=== PATIENT | female | born 1970 | race Caucasian/White ===

== ENCOUNTER → 2024-01-27 | Outpatient (CLI) | payer OTHER ==
[~2024-01-27] MED LIST: ALBU90OI INH; ASPI81CH PO; ATOR40TA PO; Budeprion Xl300 MG PO; COLACE100 MG; Cetirizine HCl10 MG PO; DOCU100 PO; FLUTICASONE PRO16 GM; FUROSEMIDE20 MG PO; HYDACE10B PO; METO25ER PO; MONT10T PO; OMEP20ER PO; SOLI5; SOLIFENACIN SUC10 MG PO; VITAMIN D5000 UNIT PO
[2024-01-27 23:38] LABS: Bacterial Vaginosis PCR Negative (NEGATIVE); Candida Group, PCR NOT DETECTED (NOT DETECT); Candida glabrata-krusei, PCR NOT DETECTED (NOT DETECT)
== END ==
LOC: LAB 14:37 → LAB SHORT 14:37
PROVIDERS: General Practice
DX: N89.8 Other specified noninflammatory disorders of vagina (principal)
CPT/HCPCS: 87481; 87661; 87801

== ENCOUNTER 2024-06-07 20:35 | Observation (INO) | payer OTHER ==
[~2024-06-07] VITALS: Ht 165.1 cm; Wt 118.9 kg
[~2024-06-07 20:35] MED LIST changes: +BUPROPION XL150 M1 PO; -COLACE100 MG; +COLACE100 MG PO
[2024-06-07 20:59] LABS: BASOPHILS ABSOLUTE AUTO 0.04 K/mm3 (0.00-0.23); BASOPHILS PERCENT AUTO 1 % (0-2); EOSINOPHILS ABSOLUTE AUTO 0.18 K/mm3 (0.00-0.68); EOSINOPHILS PERCENT AUTO 3 % (0-6); Hematocrit 44.9 % (33.0-51.0); IMMATURE GRAN ABSOLUTE AUTO 0.01 K/mm3 (0.00-0.10); IMMATURE GRAN PERCENT AUTO 0 % (0-1); LYMPHOCYTES PERCENT AUTO 25 % (21-46); MONOCYTES ABSOLUTE AUTO 0.61 K/mm3 (0.16-1.47); MONOCYTES PERCENT AUTO 10 % (4-13); Mean Corpuscular HGB 29.3 pg (26.0-34.0); Mean Corpuscular HGB Conc 33.4 g/dL (31.5-36.5); Mean Corpuscular Volume 88 fL (80-100); Mean Platelet Volume 9.2 fL (9.1-12.4); NEUTROPHILS ABSOLUTE AUTO 3.93 K/mm3 (1.96-9.15); NEUTROPHILS PERCENT AUTO 62 % (41-73); Platelet Count 302 K/mm3 (150-400); RDW Coefficient Variation 13.3 % (11.7-14.2); RDW Standard Deviation 42.9 fL (35.1-46.3); Red Blood Cell Count 5.12 M/mm3 (3.80-5.20); White Blood Cell Count 6.37 K/mm3 (4.00-11.30)
[2024-06-07 21:14] LABS: International Normalized Ratio 0.91; Prothrombin Time Results 9.8 Sec (9.7-11.5)
[2024-06-07 21:23] LABS: Albumin, Blood 3.7 g/dL (3.4-5.0); Bilirubin, Total 0.7 mg/dL (0.1-1.0); Calcium, Blood 9.4 mg/dL (8.5-10.1); Creatinine, Blood 0.89 mg/dL (0.40-1.00); Globulin, Blood 3.6 g/dL (2.2-4.0); Total Protein, Blood 7.3 g/dL (6.4-8.2)
[2024-06-07] MEDS ORDERED: Clopidogrel Bisulfate 75 MG Tab PO ONE (22:30)
[2024-06-07] MEDS ORDERED: Aspirin 81 MG Chew PO ONE (22:30)
[2024-06-07] MEDS ORDERED: FLU VACC TS2024-25(6MOS UP)/PF 45 MCG/0.5 ML SYRINGE IM ONE (22:55)
[2024-06-07] MEDS ORDERED: Ondansetron HCl 2 MG / ML 2ML Vial IV PRN (22:55)
[2024-06-07] MEDS ORDERED: NS 1,000 ML IV SCH (22:55)
[2024-06-07] MEDS ORDERED: Atorvastatin 40 MG Tab PO SCH (23:00)
[2024-06-07] MEDS ORDERED: Enoxaparin 40 MG/0.4 ML SYR SC SCH (23:00)
[2024-06-08 04:08] LABS: Source, Urine Clean Catch
[2024-06-08 04:11] LABS: Bilirubin, Urine Neg (Neg); Blood, Urine Neg (Neg); Glucose Qualitative, Urine Neg (Neg); Ketones, Urine Neg (Neg); Leukocyte Esterase, Urine Neg (Neg); Nitrite, Urine Neg (Neg); Protein, Urine 1+ (Neg); Urobilinogen, Urine NORM (Normal)
[2024-06-08 04:21] LABS: Appearance, Urine Clear (Clear); Color, Urine Yellow (P-Yellow)
[2024-06-08 06:09] LABS: BASOPHILS ABSOLUTE AUTO 0.02 K/mm3 (0.00-0.23); BASOPHILS PERCENT AUTO 1 % (0-2); EOSINOPHILS ABSOLUTE AUTO 0.14 K/mm3 (0.00-0.68); EOSINOPHILS PERCENT AUTO 3 % (0-6); Hematocrit 40.4 % (33.0-51.0); Hemoglobin 13.3 g/dL (11.5-16.0); IMMATURE GRAN PERCENT AUTO 0 % (0-1); LYMPHOCYTES ABSOLUTE AUTO 1.16 K/mm3 (0.84-5.20); LYMPHOCYTES PERCENT AUTO 27 % (21-46); MONOCYTES ABSOLUTE AUTO 0.53 K/mm3 (0.16-1.47); MONOCYTES PERCENT AUTO 12 % (4-13); Mean Corpuscular HGB 28.9 pg (26.0-34.0); Mean Corpuscular HGB Conc 32.9 g/dL (31.5-36.5); Mean Corpuscular Volume 88 fL (80-100); Mean Platelet Volume 9.3 fL (9.1-12.4); NEUTROPHILS ABSOLUTE AUTO 2.45 K/mm3 (1.96-9.15); NEUTROPHILS PERCENT AUTO 57 % (41-73); Platelet Count 256 K/mm3 (150-400); RDW Coefficient Variation 13.7 % (11.7-14.2); RDW Standard Deviation 43.8 fL (35.1-46.3)
[2024-06-08 06:23] LABS: Albumin, Blood 3.2 g/dL (3.4-5.0); Bun/Creatinine Ratio 26.6 (12.0-20.0); Calcium, Blood 8.7 mg/dL (8.5-10.1); Creatinine, Blood 0.75 mg/dL (0.40-1.00); Globulin, Blood 3.1 g/dL (2.2-4.0); Potassium, Blood 4.4 mmol/L (3.5-5.5); Total Protein, Blood 6.3 g/dL (6.4-8.2)
[2024-06-08] MEDS ORDERED: Clopidogrel Bisulfate 75 MG Tab PO SCH (09:00)
[2024-06-08] MEDS ORDERED: Aspirin 81 MG Chew PO SCH (09:00)
[2024-06-08] MEDS ORDERED: Omeprazole 20 MG CapCR PO SCH (10:00)
[2024-06-08] MEDS ORDERED: Pantoprazole Sodium 20 MG Tab PO SCH (10:00)
[2024-06-08] MEDS ORDERED: Pantoprazole Sodium 40 MG Tab PO SCH (10:00)
--- NOTE | 2024-06-08 11:59 | NUR ---
PATIENT ARRIVED TO FLOOR AT 1154 VIA GURNEY AFTER RECEIVING REPORT FROM YASMIN CABALLERO. PATIENT DRESSED IN PAJAMAS. NS @ 75 IN RIGHT HAND. WANTING TO SIT UP AT THE ENDGE OF THE BED. NO CURRENT C/O PAIN OR DISCOMFORT. PERRLA. SLIGHT RIGHT-SIDED DEFICIT NOTED.
[2024-06-08 12:04] VITALS: BP 131/90
[2024-06-08] MEDS ORDERED: POTA10T PO (13:35)
[2024-06-08] MEDS ORDERED: EPIPEN0.3 MG/0.3 IM (15:30)
[2024-06-08 15:32] LABS: U Amphetamine Screen Not Detected; U Barbituate Screen Not Detected; U Benzodiazapine Screen Not Detected; U Buprenorphine Screen Not Detected; U Cannabinoids Screen Not Detected; U Cocaine Screen Not Detected; U Methadone Screen Not Detected; U Methamphetamine Screen Not Detected; U Opiates Screen Not Detected; U Oxycodone Screen Not Detected; U Phencyclidine Screen Not Detected
[2024-06-08 15:56] VITALS: BP 135/98
[2024-06-08] MEDS ORDERED: CLOP75 PO (17:05)
--- NOTE | 2024-06-08 17:19 | NUR ---
DISCHARGE SUMMARY: A&Ox4. PLEASANT AND COOPERATIVE WITH CARE. CALLS APPROPRIATELY AND IS ABLE TO ADVOCATE NEEDS EFFECTIVELY. AMBULATES INDEPENDENTLY. CONTINENT OF BOWEL AND BLADDER. TELE NSR. ECHO AND MRI COMPLETED. MEDICALLY STABLE FOR DISCHARGE. IV AND TELE REMOVED. MEDICATIONS FAXED TO [facility]. INSTRUCTED TO FOLLOW-UP WITH PCP NEXT WEEK. LEFT FLOOR WITH ALL BELONGINGS AND DISCHARGE PACKET, ESCORTED BY [facility]. TRANSPORTATION PROVIDED BY .
== END 2024-06-08 17:25 | disposition home or self-care (01) ==
LOC: ER 20:35 → ERHOLD 20:36 → MEDS 06-08 11:58
PROVIDERS: Emergency Medicine; Hospitalist; ADMIT Internal Medicine
DX: R53.1 Weakness (principal); R47.81 Slurred speech; I10 Essential (primary) hypertension; E78.00 Pure hypercholesterolemia, unspecified; G47.30 Sleep apnea, unspecified; K21.9 Gastro-esophageal reflux disease without esophagitis; E66.01 Morbid (severe) obesity due to excess calories; Z68.41 Body mass index [BMI] 40.0-44.9, adult; Z88.1 Allergy status to other antibiotic agents; Z79.82 Long term (current) use of aspirin; Z79.899 Other long term (current) drug therapy; Z86.73 Personal history of transient ischemic attack (TIA), and cerebral infarction without residual deficits
CPT/HCPCS: 70450; 70496; 70498; 70551; 71045; 80053; 83735; 83880; 84484; 85025; 85610; 85730; 93005; 93010; 93308; 96360; 96372; 99291-25; A9270; G0378; J1650; J2470; J7030; Q9967

== ENCOUNTER 2024-07-16 13:05 | Inpatient (IN) | payer OTHER ==
[~2024-07-16] VITALS: Ht 165.1 cm; Wt 120.1 kg
[~2024-07-16 13:05] MED LIST changes: +CLOP75 PO; +EPIPEN0.3 MG/0.3 IM; +POTA10T PO
[2024-07-16 13:47] LABS: BASOPHILS ABSOLUTE AUTO 0.04 K/mm3 (0.00-0.23); BASOPHILS PERCENT AUTO 1 % (0-2); EOSINOPHILS ABSOLUTE AUTO 0.13 K/mm3 (0.00-0.68); EOSINOPHILS PERCENT AUTO 2 % (0-6); Hematocrit 45.2 % (33.0-51.0); Hemoglobin 15.2 g/dL (11.5-16.0); IMMATURE GRAN ABSOLUTE AUTO 0.01 K/mm3 (0.00-0.10); IMMATURE GRAN PERCENT AUTO 0 % (0-1); LYMPHOCYTES ABSOLUTE AUTO 1.54 K/mm3 (0.84-5.20); LYMPHOCYTES PERCENT AUTO 24 % (21-46); MONOCYTES ABSOLUTE AUTO 0.62 K/mm3 (0.16-1.47); MONOCYTES PERCENT AUTO 10 % (4-13); Mean Corpuscular HGB 29.1 pg (26.0-34.0); Mean Corpuscular HGB Conc 33.6 g/dL (31.5-36.5); Mean Corpuscular Volume 86 fL (80-100); NEUTROPHILS ABSOLUTE AUTO 4.07 K/mm3 (1.96-9.15); NEUTROPHILS PERCENT AUTO 64 % (41-73); Platelet Count 337 K/mm3 (150-400); RDW Coefficient Variation 13.2 % (11.7-14.2); RDW Standard Deviation 41.2 fL (35.1-46.3); Red Blood Cell Count 5.23 M/mm3 (3.80-5.20); White Blood Cell Count 6.41 K/mm3 (4.00-11.30)
[2024-07-16] MEDS ORDERED: PANT40 PO (14:10)
[2024-07-16] MEDS ORDERED: MULVITA PO (14:10)
[2024-07-16 14:16] LABS: Albumin, Blood 3.9 g/dL (3.4-5.0); Albumin/Globulin Ratio 1.1 (0.8-1.8); Bilirubin, Total 1.1 mg/dL (0.1-1.0); Bun/Creatinine Ratio 22.4 (12.0-20.0); Calcium, Blood 9.5 mg/dL (8.5-10.1); Creatinine, Blood 0.85 mg/dL (0.40-1.00); Globulin, Blood 3.4 g/dL (2.2-4.0); Potassium, Blood 3.7 mmol/L (3.5-5.5); Total Protein, Blood 7.3 g/dL (6.4-8.2)
[2024-07-16] MEDS ORDERED: FLU VACC TS2024-25(6MOS UP)/PF 45 MCG/0.5 ML SYRINGE IM ONE (17:20)
[2024-07-16] MEDS ORDERED: Fluticasone 0.05% Nasal Spray PRN (17:25)
[2024-07-16] MEDS ORDERED: Docusate Sodium 100 MG Cap PO PRN (17:25)
[2024-07-16] MEDS ORDERED: HydrALAZINE HCl 20 MG / ML 1ML Vial IV PRN (17:30)
[2024-07-16] MEDS ORDERED: HYDROcodone 5-APAP 325 TAB PO PRN (17:30)
[2024-07-16] MEDS ORDERED: Albuterol HFA200 ACT/6.7 GM INH INH PRN (17:55)
[2024-07-16] MEDS ORDERED: Insulin Human Lispro 100 Units/ML 3ML Syringe SC SCH (18:00)
[2024-07-16] MEDS ORDERED: Lactated Ringer's 1,000 ML IV SCH (18:30)
[2024-07-16 19:34] VITALS: BP 105/79
[2024-07-16] MEDS ORDERED: Atorvastatin 40 MG Tab PO SCH (21:00)
[2024-07-16 23:19] VITALS: BP 110/68
[2024-07-17 03:37] VITALS: BP 125/76
[2024-07-17 05:13] LABS: BASOPHILS ABSOLUTE AUTO 0.03 K/mm3 (0.00-0.23); BASOPHILS PERCENT AUTO 1 % (0-2); EOSINOPHILS ABSOLUTE AUTO 0.08 K/mm3 (0.00-0.68); EOSINOPHILS PERCENT AUTO 2 % (0-6); Hematocrit 42.1 % (33.0-51.0); IMMATURE GRAN ABSOLUTE AUTO 0.01 K/mm3 (0.00-0.10); IMMATURE GRAN PERCENT AUTO 0 % (0-1); LYMPHOCYTES ABSOLUTE AUTO 1.29 K/mm3 (0.84-5.20); LYMPHOCYTES PERCENT AUTO 27 % (21-46); MONOCYTES ABSOLUTE AUTO 0.49 K/mm3 (0.16-1.47); MONOCYTES PERCENT AUTO 10 % (4-13); Mean Corpuscular HGB Conc 33.3 g/dL (31.5-36.5); Mean Corpuscular Volume 87 fL (80-100); Mean Platelet Volume 9.1 fL (9.1-12.4); NEUTROPHILS ABSOLUTE AUTO 2.81 K/mm3 (1.96-9.15); NEUTROPHILS PERCENT AUTO 60 % (41-73); Platelet Count 272 K/mm3 (150-400); RDW Coefficient Variation 13.4 % (11.7-14.2); RDW Standard Deviation 42.9 fL (35.1-46.3); Red Blood Cell Count 4.82 M/mm3 (3.80-5.20); White Blood Cell Count 4.71 K/mm3 (4.00-11.30)
[2024-07-17 05:39] LABS: Albumin, Blood 3.1 g/dL (3.4-5.0); Bilirubin, Total 1.1 mg/dL (0.1-1.0); Bun/Creatinine Ratio 22.6 (12.0-20.0); Calcium, Blood 8.8 mg/dL (8.5-10.1); Creatinine, Blood 0.75 mg/dL (0.40-1.00); Potassium, Blood 3.7 mmol/L (3.5-5.5); Total Protein, Blood 6.1 g/dL (6.4-8.2)
[2024-07-17] MEDS ORDERED: Pantoprazole Sodium 40 MG Tab PO SCH (06:00)
--- NOTE | 2024-07-17 07:30 | NUR ---
SHIFT SUMMARY: PT ARRIVES TO PCU 3 FROM ER VIA GURNEY. PT WAS SLID TO HOSPITAL BED USING A SLIDE SHEET. PT WAS ORIENTED TO ROOM AND CALL LIGHT. PT IS A&OX4, PLEASANT AND COOPERATIVE WITH CARE. SHE HAS RIGHT SIDED DEFICITS, NO NEURO CHANGES FOR THIS NURSE THIS SHIFT. VSS ON RA. SR 70'S-80'S. PT REMAINS NPO WHILE WAITING FOR SPEECH EVAL. VOIDING ADEQUATE AMOUNTS OF DARK YELLOW URINE VIA WICKING SYSTEM. PT WAS ALSO INCONTINENT OF URINE, BUT WAS ABLE TO TELL SHE WAS WET. BRIEF IN PLACE AND CHANGED NEEDED. NO BM THIS SHIFT. MRI SCHEDULED TODAY, SCREENING IS COMPLETE AND FAXED. BED IN LOWEST POSITION, CALL LIGHT WITHIN REACH. CALLS APPROPRIATELY AND IS ABLE TO ADVOCATE NEEDS EFFECTIVELY. PT IS HOPING TO BE ABLE TO GO HOME SOON, AND IS PRETTY ADDEMANT ABOUT NOT GOING TO REHAB OR A FACILITY.
[2024-07-17 08:35] VITALS: BP 141/86
[2024-07-17] MEDS ORDERED: Cholecalciferol 1000 Unit Tablet (=25MCG) PO SCH (09:00)
[2024-07-17] MEDS ORDERED: buPROPion HCL 150 MG TAB.SR.12H PO SCH (09:00)
[2024-07-17] MEDS ORDERED: Clopidogrel Bisulfate 75 MG Tab PO SCH (09:00)
[2024-07-17] MEDS ORDERED: Aspirin 81 MG TabEC PO SCH (09:00)
[2024-07-17] MEDS ORDERED: Multivitamins 1 Tab PO SCH (09:00)
--- NOTE | 2024-07-17 10:10 | NUR ---
DR. VALLE IN AT [facility] THIS AM APPROX [address] VALLE D/C'D FLUIDS AND PATIENT IS AWAITING PT/OT TO ASSESS PATIENTS MOBILITY AND RECOMMENDATIONS FOLLOWING CURRENT ILLINESS. PATIENT MEDICAL FLOOR STATUS. TO BRING IN HOME CPAP. MRI TO BE DONE AT NOON. PATIENT DENIES NEEDS AT THIS TIME.
--- NOTE | 2024-07-17 13:11 | NUR ---
patient is alert and oriented, able to make needs known and calls appropriately. patient reports improved movement to right arm although movement to right lower extremity is very minimal. patient had echo and mri this shift-pending results. patient is currently incontinent but knows when she has to pee. patient uses a walker at baseline, patient lives in a fifth wheel with -patient has a wheelchair ramp. patient reports concerns for being able to get into their vehicle but would like to avoid going to snf or rehab if possible. patient had swallow eval done today-patient is cleared from speech for a regular diet, thin liquids, and pills whole with water. pt/ot ordered and to evaluate. bed is locked in the lowest position with call light in reach. this RN to report to Luis.
[2024-07-17 14:09] VITALS: BP 175/102
[2024-07-17 14:54] VITALS: BP 152/92
[2024-07-17] MEDS ORDERED: Enoxaparin 40 MG/0.4 ML SYR SC SCH ×2 (17:00→21:00)
--- NOTE | 2024-07-17 17:10 | NUR ---
SHIFT SUMMARY: PT ALERT AND ORIENTED X3, ABLE TO FOLLOW COMMANDS AND MAKE NEEDS KNOWN. FORGETFUL AT TIMES. PT WITH R. SIDE DEFICIT AND R. SIDE FACIAL DROOP. PT ABLE TO RAISE R. ARM THIS EVENING, IMPROVEMENT FROM AM ASSESSMENT. BP AND HR STABLE. AFEBRILE. SPO2 >96% ON ROOM AIR. LUNG SOUNDS DIM. ABD SOFT, NON TENDER, BOWEL SOUNDS +. PULSES STRONG AND EQUAL THROUGHOUT. PUREWICK IN PLACE, CONNECTED TO LCS. MRI COMPLETED THIS AFTERNOON, PT TOLERATED WELL. RESULTS PENDING. AT BEDSIDE THIS EVENING, UPDATED ON PT PLAN OF CARE. BED IN LOW, CALL LIGHT IN REACH, WILL REPORT TO ONCOMING RN.
[2024-07-17 20:37] VITALS: BP 124/83
[2024-07-18 01:00] VITALS: BP 139/81
--- NOTE | 2024-07-18 02:05 | NUR ---
SHIFT SUMMARY: PT IS A&OX4, PLEASANT AND COOPERATIVE WITH CARE. SHE HAS RIGHT SIDED DEFICITS, NO NEURO CHANGES FOR THIS NURSE THIS SHIFT. VSS ON RA. SR 80'S. PT C/O 10/10 PAIN IN HER RIGHT KNEE AND BACK. ADMINISTERED 5MG PO NORCO. PT TOLERATING A REGULAR DIET. VOIDING ADEQUATE AMOUNTS OF DARK YELLOW URINE VIA WICKING SYSTEM. PT ALSO HAD A LARGE INCONTINENT VOID. BRIEF IN PLACE AND CHANGED NEEDED. NO BM THIS SHIFT. BED IN LOWEST POSITION, CALL LIGHT WITHIN REACH. CALLS APPROPRIATELY AND IS ABLE TO ADVOCATE NEEDS EFFECTIVELY. CALLED REPORT TO ELVIRA ON MEDICAL FLOOR AT 0115. TRANSFERRED PT TO ROOM 303 WITH ALL BELONGINGS IN HER POSSESSION.
--- NOTE | 2024-07-18 03:43 | NUR ---
SHIFT SUMMARY TRANSFERED FROM PCU THIS SHIFT. HANDOFF GIVEN TO ELVIRA OLIVO BY CYCLE SPECIALISTYASMIN OCONNELL. MED YASMIN FELIX GAVE REPORT TO ME. PT ADMITTED FOR TIA W/RIGHT SIDED WEAKNESS. PT ARRIVED TO FLOOR VIA GURNEY. JACQUIECK IN PLACE. REGULAR DIET. LIFT/MAX ASSIST. A&O X4. ON RA.
[2024-07-18 04:43] VITALS: BP 130/76
[2024-07-18 05:20] LABS: CHOL/HDL RATIO 3.2; Cholesterol 145 mg/dL (50-200); HDL Cholesterol 46 mg/dL (>39); LDL/HDL RATIO 1.4; Low Density Lipoprotein Chol 62 mg/dL (0-110); Triglycerides 183 mg/dL (30-160); Very Low Density Lipoprot Chol 36 mg/dL (6-32)
[2024-07-18 07:22] VITALS: BP 133/83
[2024-07-18] MEDS ORDERED: Cetirizine HCl10 MG PO (11:44)
--- NOTE | 2024-07-18 17:56 | NUR ---
SUMMARY- PT A/O X4, R SIDED DEFICITS. WORKED WITH PT/OT, RECOMMENDATIONS TO SNF, BULB INSPECTOR PUT OUT FEELERS TO NEARBY FACILITYS, AWAITING WORD OF OPEN BED. PT SAT AT EDGE OF BED TWICE, ONCE FOR BREAKFAST AND LATER WITH PHYSICAL THERAPY. USING PUREWICK FOR INCONT. SKIN INTACT, GOOD DARCI CARE AND POWDERED GROIN FOLDS AND AXILLA. VSS. AT 1600 NEURO ASSESSMENT, FOUND THAT PT WAS ABLE TO WIGGLE TOES ON THE R SIDE. OTHER NEURO REMAINS UNCHANGED. PT TOLERATING FOOD AND FLUID. DENIES PAIN. WILL REPORT TO NOC RN
[2024-07-18 19:29] VITALS: BP 126/83
--- NOTE | 2024-07-19 00:19 | NUR ---
PT NOT ON TELE - DR. VALLE NOTES REPORTS PT TO BE ON TELE - ACTIVE TELE ORDER - REVIEWED WITH JOANN SAGE. NO CHANGE TO NEURO CHECKS FROM BEGINNING OF THE SHIFT.
--- NOTE | 2024-07-19 00:48 | NUR ---
TELE PLACED ON - NSR 97, PER LABORER CONCRETE PAVING ROLO.
--- NOTE | 2024-07-19 04:09 | NUR ---
PT UP TO BSC WITH WALKER/SBA. PT REPORTS CONTIUED NUMBNESS TO RIGHT SIDE OF BODY. BUE STRENGTH STRONG, RIGHT LEG WITH WEAKNESS - BUT ABLE TO STAND AND PIVOT TO BSC. DAVON, NO TONGUE OR FACIAL DROOP. PT DOES REPORT NUMBNESS TO HER PRIVATE AREA. PT ABLE TO SWALLOW PO LIQUIDS WITHOUT DIFFICULTY. CALL LIGHT WITHIN REACH. MEDICATED FOR MILD HEADACHE 07/23.
--- NOTE | 2024-07-19 04:51 | NUR ---
SHIFT SUMMARY - NO ACUTE CHANGES THROUGHOUT THIS SHIFT. PT IS ABLE TO ROLL IN BED SIDE TO SIDE. NEURO CHECKS HAVE REMAINED THE SAME FROM THE BEGINNING OF THE SHIFT. PT SLEPT FOR SEVERAL HOURS WITH HER CPAP ON - CONTINUOUS BIOX ON - SATS HAVE BEEN WNL THROUGHOUT THE NIGHT. PT TOLERATED PO FLUIDS AND PILLS WITHOUT DIFFICULTY. CALL LIGHT WITHIN REACH. BED IN LOW POSITION. FLUIDS AT BEDSIDE.
[2024-07-19 05:21] VITALS: BP 118/70
[2024-07-19 07:36] VITALS: BP 149/94
[2024-07-19] MEDS ORDERED: Metoprolol Succinate 25 MG TABCR PO SCH (09:00)
--- NOTE | 2024-07-19 17:41 | NUR ---
PT DISCHARGED TO R 1405, WHEELCHAIR TRANSPORT. PT TOOK ALL BELONGINGS WITH HER. HAD LG BM BEFOER SHE LEFT BECAUSE IT HAD BEEN A NUMBER OF DAYS. CALLED REPORT TO RN AT R.
[2024-07-20 05:07] LABS: CARDIOLIPIN ANTIBODY IGG <10 GPL (<=14); CARDIOLIPIN ANTIBODY IGM 10 MPL (<=12)
[2024-07-20 05:16] LABS: B2GLYCOPROTEIN 1, IGG ANTIBODY <10 SGU (<=20); B2GLYCOPROTEIN 1, IGM ANTIBODY 20 SMU (<=20)
[2024-07-20 10:06] LABS: HOMOCYSTEINE, TOTAL 7 umol/L (0-15)
[2024-07-20 17:48] LABS: PROTEIN C FUNCTIONAL 187 % (83-168)
[2024-07-20 17:49] LABS: ANTITHROMBIN, ENZYM (ACTIVITY) 112 % (76-128)
[2024-07-20 18:13] LABS: PROTEIN S AG FREE 68 % (55-123)
[2024-07-20 21:11] LABS: ANTI-XA QUALITATIVE INTERP Not Performed (Not Present); ANTICOAG MEDICATION NEUTRALIZ Not Performed (Not Performed); DRVVT 1:1 MIX RATIO Not Performed (<=1.20); DRVVT CONFIRMATION RATIO Not Performed (<=1.20); DRVVT SCREEN RATIO 1.16 (<=1.20); HEXAGONAL PHOSPHOLIPID CONFIRM Not Performed s (<=7.9); NEUTRALIZED DRVVT SCREEN RATIO Not Performed (<=1.20); NEUTRALIZED PTT-LA RATIO Not Performed (<=1.20); PROTHROMBIN TIME (PT) 12.6 s (12.0-15.5); PTT-LA RATIO 1.16 (<=1.20); THROMBIN TIME (TT) Not Performed s (<=19.5)
[2024-07-20 23:45] LABS: APC RESISTANCE 3.26 (>=2.00); FACTOR V LEIDEN BY PCR Not Done; FACV REF SPECIMEN Not Done
[2024-07-21 17:24] LABS: PROTHROMBIN F2 G20210A VARIANT Negative; PT PCR SPECIMEN Whole Blood
== END 2024-07-19 14:14 | DRG 69 ==
LOC: ER 13:05 → PCU 13:06 → ERHOLD 13:06 → PCU 19:08 → MEDS 07-18 01:36 → ENPENDDIS 07-19 13:02 → MEDS 07-19 14:14
PROVIDERS: Family Medicine; Student in an Organized Health Care Education/Training Program; ADMIT Family Medicine
PROC: 5A09357 Assistance with Respiratory Ventilation, Less than 24 Consecutive Hours, Continuous Positive Airway Pressure (ICD-10-PCS; principal; 2024-07-17)
DX: G45.9 Transient cerebral ischemic attack, unspecified (principal); G81.91 Hemiplegia, unspecified affecting right dominant side; E78.5 Hyperlipidemia, unspecified; G47.33 Obstructive sleep apnea (adult) (pediatric); I10 Essential (primary) hypertension; E66.01 Morbid (severe) obesity due to excess calories; E78.00 Pure hypercholesterolemia, unspecified; Z88.8 Allergy status to other drugs, medicaments and biological substances; Z79.82 Long term (current) use of aspirin; Z79.899 Other long term (current) drug therapy; R29.703 NIHSS score 3; R07.89 Other chest pain; Z79.02 Long term (current) use of antithrombotics/antiplatelets
CPT/HCPCS: 36415; 70450; 70496; 70498; 70551; 80053; 80061; 82947; 84484; 85025; 92610; 93005; 93010; 93306; 94660; 94760; 94762; 97110; 97112; 97161; 97165; 97530; 97535; 99285-25; A9270; G0378; J1650; J7120; Q9967

== ENCOUNTER → 2024-08-15 | Outpatient (CLI) | payer OTHER ==
[~2024-08-15] MED LIST changes: +MULVITA PO; +PANT40 PO
== END ==
LOC: LAB SHORT 12:00 → LAB 12:00
DX: R30.0 Dysuria (principal)
CPT/HCPCS: 87086

== ENCOUNTER 2024-12-02 17:25 | Emergency (ER) | payer OTHER ==
[~2024-12-02] VITALS: Ht 167.6 cm; Wt 127.0 kg
[2024-12-02 17:58] LABS: Source, Urine Clean Catch
[2024-12-02 18:11] LABS: BASOPHILS ABSOLUTE AUTO 0.04 K/mm3 (0.00-0.23); BASOPHILS PERCENT AUTO 1 % (0-2); Bilirubin, Urine Neg (Neg); EOSINOPHILS ABSOLUTE AUTO 0.19 K/mm3 (0.00-0.68); EOSINOPHILS PERCENT AUTO 3 % (0-6); Glucose Qualitative, Urine Neg (Neg); Hematocrit 42.0 % (33.0-51.0); Hemoglobin 13.6 g/dL (11.5-16.0); IMMATURE GRAN ABSOLUTE AUTO 0.02 K/mm3 (0.00-0.10); IMMATURE GRAN PERCENT AUTO 0 % (0-1); Ketones, Urine Neg (Neg); LYMPHOCYTES ABSOLUTE AUTO 1.65 K/mm3 (0.84-5.20); LYMPHOCYTES PERCENT AUTO 28 % (21-46); Leukocyte Esterase, Urine Neg (Neg); MONOCYTES ABSOLUTE AUTO 0.65 K/mm3 (0.16-1.47); MONOCYTES PERCENT AUTO 11 % (4-13); Mean Corpuscular HGB Conc 32.4 g/dL (31.5-36.5); Mean Corpuscular Volume 88 fL (80-100); NEUTROPHILS ABSOLUTE AUTO 3.31 K/mm3 (1.96-9.15); NEUTROPHILS PERCENT AUTO 57 % (41-73); NRBC ABSOLUTE 0.00 K/mm3 (0.00-0.02); NRBC Auto 0.0 /100 WBC (0.0-0.2); Platelet Count 321 K/mm3 (150-400); Protein, Urine 1+ (Neg); RDW Coefficient Variation 13.7 % (11.7-14.2); RDW Standard Deviation 44.3 fL (35.1-46.3); Specific Gravity, Urine 1.010 (1.003-1.022); Urobilinogen, Urine NORM (Normal)
[2024-12-02 18:12] LABS: Color, Urine Pale Yellow (P-Yellow)
[2024-12-02 18:15] LABS: Alanine Aminotransfer (ALT/SGP 34.0 U/L (12-78); Albumin, Blood 3.3 g/dL (3.4-5.0); Albumin/Globulin Ratio 1.0 (0.8-1.8); Anion Gap 8.0 mmol/L (3-11); Aspartate Aminotrans (AST/SGOT 21.0 U/L (12-37); Bilirubin, Total 0.7 mg/dL (0.1-1.0); Blood Urea Nitrogen 20.0 mg/dL (8-24); CO2, Blood 27.0 mmol/L (21-32); Calcium, Blood 8.3 mg/dL (8.5-10.1); Chloride, Blood 107.0 mmol/L (98-108); Creatinine, Blood 0.74 mg/dL (0.40-1.00); Globulin, Blood 3.3 g/dL (2.2-4.0); Glucose, Blood 99.0 mg/dL (70-99); Potassium, Blood 3.7 mmol/L (3.5-5.5); Sodium, Blood 138.0 mmol/L (136-145); Total Protein, Blood 6.6 g/dL (6.4-8.2)
[2024-12-02] MEDS ORDERED: Ondansetron HCl 2 MG / ML 2ML Vial IV ONE (18:35)
[2024-12-02] MEDS ORDERED: NS 500 ML IV SCH (18:35)
[2024-12-02] MEDS ORDERED: HYDROmorphone HCl/Pf 1MG SYR IV ONE (18:35)
[2024-12-02] MEDS ORDERED: FAMO20 PO (23:00)
[2024-12-02] MEDS ORDERED: ALMACONE SUSPE355 ML PO (23:00)
[2024-12-02] MEDS ORDERED: FentaNYL Citrate 50 MCG/ML 2 ML Injection IV PRN (23:35)
[2024-12-03] VITALS: BP 134/98
== END 2024-12-03 00:24 | disposition home or self-care (01) ==
LOC: ER 17:25
PROVIDERS: Emergency Medicine
DX: A08.4 Viral intestinal infection, unspecified (principal); E86.0 Dehydration; E78.00 Pure hypercholesterolemia, unspecified; I10 Essential (primary) hypertension; G47.30 Sleep apnea, unspecified; E66.9 Obesity, unspecified; Z68.42 Body mass index [BMI] 45.0-49.9, adult; Z88.1 Allergy status to other antibiotic agents; Z79.02 Long term (current) use of antithrombotics/antiplatelets; Z79.82 Long term (current) use of aspirin; Z79.899 Other long term (current) drug therapy
CPT/HCPCS: 74177; 76705; 80053; 83690; 85025; 96374-59; 96375; 99285-25; J1171; J2405; J3010; J7030; Q9967

== ENCOUNTER → 2025-01-11 | Outpatient (CLI) | payer OTHER ==
[~2025-01-11] MED LIST changes: +ALMACONE SUSPE355 ML PO; +FAMO20 PO
[2025-01-14 06:54] LABS: CALPROTECTIN,FECAL 106 ug/g (<=49); PANCREATIC ELASTASE,FECAL >800 ug/g (>=100)
== END | disposition home or self-care (01) ==
LOC: LAB 08:00 → LAB SHORT 08:00
PROVIDERS: Nurse Practitioner Family
DX: R10.84 Generalized abdominal pain (principal)
CPT/HCPCS: 82653; 83993; 87338